=== PATIENT | female | born 1955 | race Caucasian/White ===

== ENCOUNTER 2021-06-24 05:35 | Day surgery (SDC) | payer OTHER ==
[~2021-06-24] VITALS: Ht 149.9 cm; Wt 125.0 kg
[~2021-06-24 05:35] MED LIST: METOPROLOL TAR100 MG PO; TIROSINT137 MCG PO; VITAMIN D2000 UNIT PO
--- NOTE | 2021-06-24 07:04 | NUR ---
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 PRE MEDS GIVEN AND PT HAS BEEN UPDATED ON DELAY WITH EMERGENT CASE AHEAD OF HER.
--- NOTE | 2021-06-24 08:24 | NUR ---
06/24/21 0824 Indira Baron 0812-PATIENT ARRIVED TO PACU ON 6L MASK NONAROUSABLE ORAL AIRWAY IN PLACE. RR EVEN. PATIENT SUCTIONED BY ELVIE ABREU. SINUS LILIANA. NO DRAIANGE TO RONALDO PAD. 0813-RN DOING JAW THRUST TO MAINTAIN OPEN AIRWAY, ORAL AIRWAY REMAINS IN PLACE 6L MASK. 0815-PATIENT MAINTAINING OWN AIRWAY HOB ELEVATED. 6L MASK RR EVEN. 0818-PATIENT AROUSING TO VERBAL STIMULI OPENING EYES LIFTING ARMS. ORAL AIRWAY REMOVED. 0823-PATIENT DROWSY AWAKENS OFF AND ON. DENIES PAIN OR NAUSEA. 6L MASK RR EVEN 98%. DOZES BACK TO SLEEP.
--- NOTE | 2021-06-24 09:12 | NUR ---
0788 IN ROOM. RETURNED FROM PACU. WATER AND CRACKERS GIVEN. REQUESTS APIN PILL RATES PAIN 07/26.
--- NOTE | 2021-06-24 09:17 | NUR ---
WENT BACK IN ROOM HAD SMALL AMT EMESIS ON GOWN. WASHED AND CHANGED GOWN. WILL WAIT TO GIVE PAIN PILL TILL READY.
--- NOTE | 2021-06-24 09:33 | NUR ---
FEELS BETTER NOW PAIN MED GIVEN AFTER CRACKERS
--- NOTE | 2021-06-24 10:14 | NUR ---
PT ALERT, ORIENTED AND SUPPORTED BY HER . PT'S CASE PUSHED BACK DUE TO EMERGENCY. PT SEEMS TO BE DEALING WELL. ALL QUESTIONS ASKED ANSWERED. GAVE PT BLESSING AND WILL FOLLOW NEEDED
--- NOTE | 2021-06-24 11:28 | NUR ---
1100 ASSISTED TO BR VOIDS 100MLS DARK URINE AND SOME BLOOD.WANTS TO GO HOME. HAS DRANK 400MLS WATERM AND ATE CRACKERS. AMB WELL.
--- NOTE | 2021-06-25 17:57 | OR ---
[facility] [address] [place], [place] [address] Signed DATE OF OPERATION: 06/24/2021 SURGEON: Ruth López MD DATA INTEGRITY CONSULTANT: Dr. Mcgrath. PREOPERATIVE DIAGNOSES: 1. Postmenopausal bleeding. 2. History of endometrial ablation. 3. Morbid obesity POSTOPERATIVE DIAGNOSES: 1. Postmenopausal bleeding. 2. History of endometrial ablation, pending pathology. 3. Morbid obesity PROCEDURE: Hysteroscopy, resection of endometrial lesions. ANESTHESIA: General LMA. ESTIMATED BLOOD LOSS: Minimal. DRAINS: None. INDICATIONS AND FINDINGS: The patient is a 65-year-old female, who underwent endometrial ablation quite sometime ago and did well until an episode of bleeding recently. Endometrial biopsy was insufficient. Ultrasound was nondiagnostic as well. At the time of surgery, exam under anesthesia revealed a normal-size uterus. The adnexa were not palpable given her morbid obesity. At the time of hysteroscopy, the cavity was able to be sounded to 7 cm. The majority of the cavity appeared atrophic but there were a few islands of probable endometrial tissue. DESCRIPTION OF PROCEDURE: The patient was prepped and draped in the dorsal lithotomy position. The [place] Electronically Signed By: RUTH LÓPEZ MD 06/25/21 1757 PATIENT NAME: DEVONTE PATEL OPERATIVE REPORT DATE OF : 59 REPORT #: [id number] PHYSICIAN: RUTH LÓPEZ MD PCP: KARI RILEY PAC REPORT IS CONFIDENTIAL AND NOT TO BE RELEASED WITHOUT AUTHORIZATION [facility] [address] [place], [place] [address] Signed speculum was used in the posterior cul-de-sac. The anterior lip of the cervix was visualized and grasped with a single-tooth tenaculum. The cavity was then sounded to 7 cm. The endocervical canal was then dilated carefully to a #8 dilator. MyoSure device was then placed. The majority of the cavity did appear atrophic. The right tubal ostia could be identified, the left tubal ostia could not. There was no evidence of any perforation. There appeared to be some islands of probable endometrial tissue at the left posterior lower fundus as well as the right anterior lateral lower fundus. The MyoSure Lite was then introduced and these areas were sampled without difficulty. The procedure was then terminated. The deficit was 300 mL. The tenaculum was removed. There was no evidence of any ongoing bleeding from the cervix. The procedure was terminated and the patient was taken to the recovery room in good condition. All sponge and needle counts were correct. MD RHINA Grove/KERMIT /[id number] cc: DO Kari Villalobos PA-C Copies: DUNCAN MCGRATH ERIKA PAC ~ Electronically Signed By: RUTH LÓPEZ MD 06/25/21 1757 PATIENT NAME: DEVONTE PATEL OPERATIVE REPORT DATE OF : 59 REPORT #: [id number] PHYSICIAN: RUTH LÓPZE MD PCP: KARI RILEY PAC REPORT IS CONFIDENTIAL AND NOT TO BE RELEASED WITHOUT AUTHORIZATION
--- NOTE | 2021-06-30 16:59 | PATH ---
[facility] [address] [place], [place] [address] Signed SPECIMEN(S): A ENDOMETRIAL CURETTINGS SPECIMEN SOURCE: A. ENDOMETRIAL CURETTINGS CLINICAL HISTORY: Hysteroscopy, DC. Postmenopausal bleeding, history of endometrial ablation. FINAL PATHOLOGIC DIAGNOSIS: Endometrium, curettage: - Fragments of fibromuscular tissue with focal endometrial type glands, mucinous glands, and hemosiderin-laden macrophages. - Fragments of endocervical surface mucosa with chronic inflammation. - Squamous epithelium with no histopathologic abnormality. - Negative for atypia or malignancy. COMMENT: The fragments of tissue with fibromuscular stroma could represent fragments of a benign endometrial polyp or adenomyomatous polyp. Intact background endometrium with both glands and stroma is not identified. As part of [employer] Quality Improvement Program, this case was reviewed by another member of our pathology staff. NAL:NRT:cml:C2NR MICROSCOPIC EXAMINATION: Histologic sections of all submitted blocks are examined by light microscopy. These findings, together with the gross examination, support the pathologic diagnosis. GROSS DESCRIPTION: The specimen, labeled "KF," and designated on the requisition "EMC, endometrial ablation," is received in formalin and consists of castillo soft tissue fragments with mucus and clot material measuring 2.0 x 1.3 x 0.3 cm in aggregate. Specimen is filtered and entirely submitted in cassette (A1). AT (under the direct supervision of a pathologist) The Gross Description was prepared using a voice recognition system. The report was reviewed for accuracy; however, sound-alike word errors, addition and/or deletions may occur. If there is any question about this report, please contact Client Services. PATIENT NAME: DEVONTE PATEL PATHOLOGY DATE OF : 59 REPORT #: [id number] PHYSICIAN: GLENN MCGEE PCP: SARINA RILEY PAC REPORT IS CONFIDENTIAL AND NOT TO BE RELEASED WITHOUT AUTHORIZATION [facility] [address] [place] [address] Signed PERFORMING LABORATORY: The technical component was performed [place] [address] (Seaman Officer: Dyan Solano MD; CLIA# [id number]). Professional interpretation was performed by [facility] [address] [address] (CLIA# [id number]). Diagnostician: Esther Foster MD Pathologist Electronically Signed 06/30/2021 Copies: ~ PATIENT NAME: DEVONTE PATEL PATHOLOGY DATE OF : 59 REPORT #: [id number] PHYSICIAN: GLENN MCGEE PCP: SARINA RILEY PAC REPORT IS CONFIDENTIAL AND NOT TO BE RELEASED WITHOUT AUTHORIZATION
== END 2021-06-24 11:10 | disposition home or self-care (01) ==
LOC: DS 05:35
PROVIDERS: ATTEND Obstetrics & Gynecology
PROC: 0UDB8ZZ Extraction of Endometrium, Via Natural or Artificial Opening Endoscopic (ICD-10-PCS; principal; 2021-06-24 07:30)
DX: N72 Inflammatory disease of cervix uteri (principal); E66.01 Morbid (severe) obesity due to excess calories; Z68.43 Body mass index [BMI] 50.0-59.9, adult
CPT/HCPCS: J1644; J2001; J2250; J2405; J2704; J2765; J7121